=== PATIENT | female | born 1985 | race Caucasian/White ===

== ENCOUNTER → 2018-02-17 | Outpatient (CLI) | payer OTHER ==
[~2018-02-17] MED LIST: Motrin PO; Natalcare Rx,Pramile PO; ORTHO TRI-CYCL1 EACH PO; PROZAC20 MG PO
== END | disposition home or self-care (01) ==
LOC: RES 02-13 08:00
DX: J45.909 Unspecified asthma, uncomplicated (principal)
CPT/HCPCS: 94060; 94726; 94729